=== PATIENT | female | born 1975 | race Caucasian/White ===

== ENCOUNTER 2019-11-16 20:02 | Emergency (ER) | payer OTHER, MEDICAID ==
[~2019-11-16] VITALS: Ht 172.7 cm; Wt 101.2 kg
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
[2019-11-16] MEDS ORDERED: ONDANSETRON ODT 4 MG ONE (20:37)
[2019-11-16] MEDS ORDERED: HYDROcodone/APAP 5/325 TABLET ONE (20:38)
--- NOTE | 2019-11-16 20:42 | NUR ---
PT TO CT AT THIS TIME.
--- NOTE | 2019-11-16 20:42 | NUR ---
PT MEDICATED PER EMAR. PT TOLERATED WELL.
--- NOTE | 2019-11-16 20:55 | NUR ---
PT BACK TO ROOM FROM CT AT THIS TIME.
[2019-11-16] MEDS ORDERED: HYDROcodone/APAP 5/325 TABLET PO ONE (21:00)
[2019-11-16] MEDS ORDERED: ONDANSETRON ODT 4 MG PO ONE (21:00)
[2019-11-16 22:54] VITALS: BP 113/71
--- NOTE | 2019-11-16 22:54 | NUR ---
PA AT BEDSIDE TO EXPLAIN ALL RESULTS AT THIS TIME.
--- NOTE | 2019-11-16 23:09 | NUR ---
Patient given discharge instructions and they have confirmed that they understand the instructions. Patient ambulatory with steady gait.
== END 2019-11-16 23:10 | disposition home or self-care (01) ==
LOC: ED 20:32
DX: S22.31XA Fracture of one rib, right side, initial encounter for closed fracture (principal); S16.1XXA Strain of muscle, fascia and tendon at neck level, initial encounter; S09.90XA Unspecified injury of head, initial encounter; Z79.899 Other long term (current) drug therapy; W19.XXXA Unspecified fall, initial encounter; Y93.89 Activity, other specified; Y92.830 Public park as the place of occurrence of the external cause; Y99.8 Other external cause status
CPT/HCPCS: 70450; 71101; 72072; 72110; 72125; 99285; Q0162